=== PATIENT | female | born 1950 | race Caucasian/White ===

== ENCOUNTER → 2023-06-05 13:24 | Outpatient (REF) | payer MEDICARE, SELFPAY | LOC: HWRAD 13:24 | PROVIDERS: ATTENDING PHYSICIAN Physician Assistant | DX: Z12.31 Encounter for screening mammogram for malignant neoplasm of breast (principal); M81.0 Age-related osteoporosis without current pathological fracture | CPT/HCPCS: 77063; 77067; 77080 ==

== ENCOUNTER → 2024-04-11 08:13 | Outpatient (REF) | payer MEDICARE, SELFPAY ==
[2024-04-11 09:39] LABS: % Basophils 1.2 % (0-2); % Eosinophils 3.6 % (0-6); % Immature Granulocytes 0.2 % (0-0.5); % Lymphocytes 34.4 % (20.5-51.1); % Monocytes 9.3 % (1.7-9.3); % Neutrophils 51.3 % (42.2-75.2); Absolute Basophils 0.1 10^3/uL (0-0.2); Absolute Eosinophils 0.2 10^3/uL (0-0.7); Absolute Lymphocytes 1.4 10^3/uL (1.2-3.4); Absolute Monocytes 0.4 10^3/uL (0.1-0.6); Absolute Neutrophils 2.1 10^3/uL (1.4-6.5); Hematocrit 41.2 % (37.0-47.0); Hemoglobin 13.5 g/dL (12.0-16.0); Mean Corp Hgb Conc. 32.8 g/dL (33.0-37.0); Mean Corpuscular Hgb 30.5 pg (27.0-31.0); Mean Platelet Volume 11.8 fL (7.4-10.4); Nucleated Red Blood Cells % 0 %; Platelet Count 148 10^3/uL (130-400); Red Blood Cell Count 4.43 10^6/uL (4.20-5.40); White Blood Cell Count 4.2 10^3/uL (4.8-10.8)
[2024-04-11 11:20] LABS: ALT (SGPT) 24 U/L (0-35); AST (SGOT) 27 U/L (14-36); Alkaline Phosphatase 42 U/L (38-126); Blood Urea Nitrogen 20 mg/dl (7-17); Calcium 9.4 mg/dl (8.4-10.2); Carbon Dioxide 31 mmol/L (22-30); Chloride 104 mmol/L (98-107); Glucose 76 mg/dl (70-99); HDL Cholesterol 61 mg/dl; LDL Cholesterol, Calculated 113 mg/dl; Sodium 140 mmol/L (135-145); Total Bilirubin 0.5 mg/dl (0.2-1.3); Total Cholesterol 192 mg/dl (50-199); Total Protein 5.9 g/dl (6.3-8.2); Triglyceride 94 mg/dl (10-149); Very Low Density Lipoprotein 18 mg/dl (0-30); eGFR > 60.00
[2024-04-11 11:27] LABS: TSH Reflex To Free T4 1.05 uIU/ml (0.47-4.68)
== END ==
LOC: HWLAB 08:13
PROVIDERS: ATTENDING PHYSICIAN Internal Medicine
DX: R03.0 Elevated blood-pressure reading, without diagnosis of hypertension (principal); M81.0 Age-related osteoporosis without current pathological fracture; D69.6 Thrombocytopenia, unspecified; E78.00 Pure hypercholesterolemia, unspecified
CPT/HCPCS: 36415; 80053; 80061; 84443; 85025

== ENCOUNTER → 2024-05-09 07:31 | Outpatient (REF) | payer MEDICARE, SELFPAY | LOC: HWRAD 07:31 | PROVIDERS: ATTENDING PHYSICIAN Internal Medicine | DX: R22.9 Localized swelling, mass and lump, unspecified (principal) | CPT/HCPCS: 76705 ==

== ENCOUNTER → 2024-06-03 09:06 | Outpatient (REF) | payer MEDICARE, SELFPAY | LOC: HWWDC 09:06 | PROVIDERS: ATTENDING PHYSICIAN Internal Medicine | DX: Z12.31 Encounter for screening mammogram for malignant neoplasm of breast (principal) | CPT/HCPCS: 77063; 77067 ==

== ENCOUNTER 2024-07-02 06:15 | Day surgery (SDC) | payer MEDICARE, SELFPAY ==
[2024-07-02] VITALS (7 sets, daily range): BP systolic 92–168; BP diastolic 46–92; BMI 21.4
[2024-07-02] MEDS: TYLENOL 1000 MG PO (08:24)
[2024-07-02] MEDS: NORMOSOL-R/PLASMALYTE-A 1000 IV (08:34)
--- NOTE | 2024-07-02 09:38 | W.SUR.PREOP ---
Pre-Operative Surgical Note
-
I have examined this patient prior to the performance of the scheduled procedure.
The patient's condition is unchanged from the time of the current History and
Physical and the patient is able to undergo the scheduled procedure.
--- NOTE | 2024-07-02 09:38 | HP.FOC2 ---
Focused History & Physical
Chief Complaint
HPI:
Chief Complaint: Epigastric hernia
HPI / Indication for Planned Procedure:
this is a 73-year-old female with an epigastric hernia
Relevant Past Medical History: Negative
Relevant Social History: Negative
Relevant Family History: Negative
Relevant Past Surgical History: Negative
Review of Systems
Review of Pertinent Systems: All Systems Negative
Medication
See Medication form for detailed medications: Yes
Medication List (including Herbals & OTC):
cholecalciferol (vitamin D3) 50 mcg (2,000 unit) capsule (Vitamin D3) 50 mcg PO DAILY 06/21/24
Medications Reviewed: Yes
Allergies and Reactions
Patient has Allergies: No
Noted Allergies and Reactions:
Allergy/AdvReac Type Severity Reaction Status Date / Time
No Known Allergies Allergy Verified 07/02/24 08:16
Pertinent Physical Exam
All Other Systems: Negative
Head/Neck: Normal
Diagnosis / Assessment
this is a 73-year-old female with an epigastric hernia
Plan / Procedure
Will plan for open epigastric hernia repair
Anesthesia/Sedation to be done by Anesthesia Provider: Yes
--- NOTE | 2024-07-02 10:44 | OR.RPT ---
Operative Report
Operative Report
Patient Name: Nika Alfaro
: 1950
Date of Operation: 07/02/2024
Preoperative Diagnosis: Epigastric hernia
Postoperative Diagnosis: Same
Procedure(s):
Open epigastric hernia
Surgeon(s):
Dr. Robel Dobson
Electric Meter Reader(s):
None
Anesthesia: Local/MAC
Estimated Blood Loss: 1 cc
Urine Output: None
Drains/Lines/Implants: None
Specimens: None
Indication for surgery:
The patient has a symptomatic epigastric hernia. After review of their therapeutic options, they elected to pursue open repair.
Findings at the time of surgery:
Patient had an incarcerated epigastric hernia containing preperitoneal fat which was resected to the level of the fascia. The 1cm defect was closed with x2 [id number] 0 Surgilon sutures.
Details of the operation:
After successful induction of anesthesia, the patient was prepped and draped in the supine position. A team timeout was performed confirming administration of DVT prophylaxis, IV antibiotics and SCDs. The skin was anesthestized with 0.25% Marcaine
and a transverse linear incision was made over the bulge in the epigastrium and dissection carried down to the fascia. The hernia sac was then encircled and carefully dissected off of the surrounding tissue. It was debulked using 3-0 Vicryl ties
before it was returned to the abdomen. The defect measured 1 cm. The defect was then closed in the transverse direction using x2 [id number]-[id number] 0 Surgilon sutures. The dermis was then approximated with interrupted 3-0 Vicryl sutures followed by
Dermabond. The patient was returned to the Recovery Room in stable condition. Sponge and instrument counts were correct. No specimens sent to Pathology.
I was the attending physician and performed the procedure with no assistance. I was present for all portions of the case.
Robel Dobson MD
--- NOTE | 2024-07-02 10:49 | W.IMMPOSTOP ---
Surgical Immed Post Op Note
-
Primary Surgeon: Robel Dobson MD
Assisting Surgeon: None
Pre-op Diagnosis: Epigastric hernia
Post-op Diagnosis: Same
Procedure Performed: Open epigastric hernia repair
Anesthesia Type: Local/MAC
Specimen / Cultures: None
Estimated Blood Loss: 1 cc
Complications: [None]
Operative Findings: Patient had an incarcerated epigastric hernia containing preperitoneal fat which was resected to the level of the fascia. The 1cm defect was closed with x2 [id number] 0 Surgilon sutures.
== END 2024-07-02 12:30 | disposition home or self-care (01) ==
LOC: SDS 06:15
PROVIDERS: ATTENDING PHYSICIAN Surgery
DX: K43.6 Other and unspecified ventral hernia with obstruction, without gangrene (principal)
CPT/HCPCS: 49592; C1894

== ENCOUNTER → 2025-03-17 07:35 | Outpatient (REF) | payer MEDICARE, SELFPAY ==
[2025-03-17 10:22] LABS: Hematocrit 42.6 % (37.0-47.0); Hemoglobin 13.8 g/dL (12.0-16.0); Mean Corp Hgb Conc. 32.4 g/dL (33.0-37.0); Mean Corpuscular Volume 95.3 fL (81.0-99.0); Nucleated Red Blood Cells % 0 %; Platelet Count 148 10^3/uL (130-400); Red Cell Dist. Width 14.0 % (11.5-14.5)
[2025-03-17 11:13] LABS: ALT (SGPT) 21 U/L (0-35); AST (SGOT) 24 U/L (14-36); Albumin 4.2 g/dl (3.5-5.0); Alkaline Phosphatase 59 U/L (38-126); Blood Urea Nitrogen 20 mg/dl (7-17); Calcium 9.6 mg/dl (8.4-10.2); Carbon Dioxide 30 mmol/L (22-30); Chloride 103 mmol/L (98-107); Glucose 83 mg/dl (70-99); HDL Cholesterol 62 mg/dl; LDL Cholesterol, Calculated 121 mg/dl; Potassium 4.3 mmol/L (3.5-5.1); Sodium 138 mmol/L (135-145); Total Protein 6.3 g/dl (6.3-8.2); Very Low Density Lipoprotein 12 mg/dl (0-30); eGFR 59.86
== END ==
LOC: HWLAB 07:35
PROVIDERS: ATTENDING PHYSICIAN Internal Medicine
DX: I10 Essential (primary) hypertension (principal); R00.1 Bradycardia, unspecified; E78.00 Pure hypercholesterolemia, unspecified; Z00.00 Encounter for general adult medical examination without abnormal findings; D72.819 Decreased white blood cell count, unspecified
CPT/HCPCS: 36415; 80053; 80061; 85025